=== PATIENT | female | born 1990 | race Caucasian/White ===

== ENCOUNTER 2018-10-28 17:19 | Emergency (ER) | payer OTHER ==
[2018-10-28 17:24] VITALS: BP 104/70
[2018-10-28] MEDS ORDERED: Magnesium CITRATE* 300 ML BTL PO ONE (17:56)
[2018-10-28] MEDS ORDERED: Hydrocortisone SUPP* 25 MG SUPP (2.5%) PR ONE (17:56)
--- NOTE | 2018-10-28 17:57 | ED ---
GI/ HPI - HPI Summary HPI Summary: This patient is a 27 year old F presenting to [facility] accompanied by 2 female friends with a chief complaint of sudden onset of constipation and pain in the buttock area since 3 hours ago today, 10/28/18. Pt reports that for the past 3 hours, while trying to use the restroom she had rectal pain, prompting her visit to the ED. Patient tried to go to bathroom for 2 hrs earlier today as she felt like she needed to go but could not actually make a bowel movement. Patient reports she had no pain prior to attempt but after she felt pain in the buttock area. Patient reports last time she had a bowel movement was yesterday and that she usually goes every day. Patient reports she did not have a difficult time making a bowel movement yesterday. Symptoms aggravated by straining. Symptoms alleviated by laying down on side. Patient reports chills. Patient denies hx constipation and denies nausea, rectal bleeding, fevers. Patient tried to use Pepto-Bismol and drink Gatorade to address symptoms. Patient uses Wellbutrin extended release and Strattera 60 mg. - History of Current Complaint Chief Complaint: EDConstipation Time Seen by Provider: 10/28/18 17:32 Stated Complaint: CONSTIPATION PER PT Hx Obtained From: Patient Onset/Duration: Started Hours Ago, Still Present Timing: Constant Pain Intensity: 9 Associated Signs and Symptoms: Positive: Constipation, Chills, Other: - denies dehydration, consumption of odd foods, bleeding. Negative: Nausea, Fever Aggravating Factor(s): Nothing Alleviating Factor(s): Nothing - Allergy/Home Medications Allergies/Adverse Reactions: Allergies Allergy/AdvReac Type Severity Reaction Status Date / Time No Known Allergies Allergy Verified 10/28/18 17:24 PMH/Surg Hx/FS Hx/Imm Hx Endocrine/Hematology History: Denies: Hx Diabetes Cardiovascular History: Denies: Hx Hypertension Sensory History: Denies: Hx Legally Blind, Hx Deafness EENT History: Denies: Hx Deafness - Surgical History Surgical History: Unable to Obtain/Confirm Infectious Disease History: No Infectious Disease History: Denies: Traveled Outside the [place] in Last 30 Days - Family History Known Family History: Positive: Hypertension, Diabetes, Other - cancer - Social History Alcohol Use: Rare Hx Substance Use: No Substance Use Type: Reports: None Hx Tobacco Use: No Smoking Status (MU): Never Smoked Tobacco Review of Systems Positive: Chills, Other - denies dehydration and consumption of odd foods. Negative: Fever Positive: Other - constipation, buttock pain. Negative: Nausea Positive: other - denies bleeding All Other Systems Reviewed And Are Negative: Yes Physical Exam - Summary Physical Exam Summary: Constitutional: Well-developed, Well-nourished, Alert. (-) Distressed Skin: Warm, Dry HENT: Normocephalic; Atraumatic Eyes: Conjunctiva normal Neck: Musculoskeletal ROM normal neck. (-) JVD, (-) Stridor, (-) Nuchal rigidity Cardio: Rhythm regular, rate normal, Heart sounds normal; Intact distal pulses; Radial pulses are 2+ and symmetric. (-) Murmur Pulmonary/Chest wall: Effort normal. (-) Respiratory distress, (-) Wheezes, (-) Rales Abd: Soft, (-) tenderness, (-) Distension, (-) Guarding, (-) Rebound Rectal: no hemorrhoids, fissures or palpable masses. No bleeding noted. Musculoskeletal: (-) Edema Lymph: (-) Cervical adenopathy Neuro: Alert, Oriented x3 Psych: Mood and affect Normal Triage Information Reviewed: Yes Vital Signs On Initial Exam: Initial Vitals Temp Pulse Resp BP Pulse Ox 97.6 F 88 16 104/70 100 10/28/18 17:21 10/28/18 17:21 10/28/18 17:21 10/28/18 17:21 10/28/18 17:21 Vital Signs Reviewed: Yes Diagnostics - Vital Signs Vital Signs Temp Pulse Resp BP Pulse Ox 10/28/18 17:21 97.6 F 88 16 104/70 100 - Laboratory Lab Statement: Any lab studies that have been ordered have been reviewed, and results considered in the medical decision making process. GIGU Course/Dx - Course Course Of Treatment: 27-year-old female presents with constipation and rectal pain after straining to go to the restroom. Physical exam with a well- appearing female, no abdominal tenderness, rectal exam without fissure, hemorrhoid, obvious mass or fluid collection. Differential includes constipation, fissures, perirectal or rectal abscess. Patient does not have any infectious symptoms to suggest abscess. Patient given symptomatic control with Anusol positive and mag citrate for constipation. Patient return for worsening symptoms - Diagnoses Provider Diagnoses: Rectal pain, Constipation Discharge ED - Sign-Out/Discharge Documenting (check all that apply): Patient Departure - discharge Patient Received Moderate/Deep Sedation with Procedure: No - Discharge Plan Condition: Stable Disposition: HOME Patient Education Materials: Constipation (ED), Rectal Pain (ED) Additional Instructions: You were seen in the emergency Department with rectal pain and constipation. Please take magnesium citrate once. Please return to emergency department if you have continued pain, fevers, worsening of your pain or if you're concerned. - Billing Disposition and Condition Condition: STABLE Disposition: Home - Attestation Statements Document Initiated by Willy: Yes Documenting Scribe: Becky Hansen Provider For Whom Willy is Documenting (Include Credential): Dr. Elizabeth Pena MD Scribe Attestation: Becky Rosa, scribed for Dr. Elizabeth Pena MD on 10/28/18 at 1842. Scribe Documentation Reviewed: Yes Provider Attestation: The documentation as recorded by the Becky stallings accurately reflects the service I personally performed and the decisions made by me, Dr. Elizabeth Pena MD Status of Scribhumaira Document: Viewed
== END 2018-10-28 18:14 | disposition home or self-care (01) ==
LOC: ED 17:19
DX: K59.00 Constipation, unspecified (principal); K62.89 Other specified diseases of anus and rectum
CPT/HCPCS: 99282; A9270-GY